=== PATIENT | female | born 1970 | race Caucasian/White ===

== ENCOUNTER 2017-04-03 14:08 | Emergency (ER) | payer MEDICAID, OTHER ==
[2017-04-03] MEDS: LORazepam 2 MG/ML VIAL (J2060) IV ×2 (14:45)
[2017-04-03] MEDS: MORPHINE 4 MG/ML 1ML VIAL (J2270) IV ×4 (14:46→16:46)
[2017-04-03] MEDS: LABETALOL HCL 100 MG/20 ML VIAL IV ×2 (16:12)
[2017-04-03] MEDS: NS 1,000 ML IV ×2 (16:15)
[2017-04-03 16:29] LABS: BASO % 0.4 % (0.0-1.0); EOS % 0.3 % (0.0-3.0); HEMATOCRIT 37.6 % (36.0-47.0); HEMOGLOBIN 12.9 g/dl (12.0-16.0); IMMATURE GRANULOCYTE % 0.2 % (0-3.0); LYMPH # 1.2 10^3/uL (1.5-4.5); LYMPH % 11.2 % (24.0-44.0); MEAN CORPUSCULAR HEMOGLOBIN 34.3 pg (27.0-33.0); MEAN CORPUSCULAR HGB CONC 34.3 g/dl (32.0-36.5); MONO # 0.6 10^3/uL (0.0-0.8); MONO % 5.5 % (0.0-5.0); NEUTROPHILS # 8.6 10^3/uL (1.8-7.7); NEUTROPHILS % 82.4 % (36.0-66.0); PLATELET COUNT, AUTOMATED 252 10^3/uL (150-450); RED BLOOD COUNT 3.76 10^6/uL (4.00-5.40); RED CELL DISTRIBUTION WIDTH 11.8 % (11.5-14.5); WHITE BLOOD COUNT 10.5 10^3/uL (4.0-10.0)
[2017-04-03 16:48] LABS: ANION GAP 7 MEQ/L (8-16); BLOOD UREA NITROGEN 9 MG/DL (7-18); CARBON DIOXIDE LEVEL 27 MEQ/L (21-32); CHLORIDE LEVEL 103 MEQ/L (98-107); CREATININE FOR GFR 0.66 MG/DL (0.55-1.30); GLOMERULAR FILTRATION RATE > 60.0 (>58); GLUCOSE, FASTING 119 MG/DL (70-100); POTASSIUM SERUM 3.3 MEQ/L (3.5-5.1); SODIUM LEVEL 137 MEQ/L (136-145)
== END 2017-04-03 18:12 | disposition short-term general hospital (02) ==
LOC: M ED 14:08
DX: S82.192A Other fracture of upper end of left tibia, initial encounter for closed fracture (principal); W10.9XXA Fall (on) (from) unspecified stairs and steps, initial encounter; Y92.099 Unspecified place in other non-institutional residence as the place of occurrence of the external cause; Y93.9 Activity, unspecified
CPT/HCPCS: J2270

== ENCOUNTER 2017-05-03 11:54 | Emergency (ER) | payer OTHER, MEDICAID ==
[2017-05-03] MEDS: NS 1,000 ML IV (12:45)
[2017-05-03 13:21] LABS: BASO # 0.1 10^3/uL (0.0-0.2); BASO % 1.2 % (0.0-1.0); EOS # 0.2 10^3/uL (0.0-0.50); EOS % 4.4 % (0.0-3.0); HEMATOCRIT 36.3 % (36.0-47.0); HEMOGLOBIN 11.9 g/dl (12.0-16.0); IMMATURE GRANULOCYTE % 0.5 % (0-3.0); LYMPH # 0.8 10^3/uL (1.5-4.5); LYMPH % 18.8 % (24.0-44.0); MEAN CORPUSCULAR HEMOGLOBIN 33.7 pg (27.0-33.0); MEAN CORPUSCULAR HGB CONC 32.8 g/dl (32.0-36.5); MEAN CORPUSCULAR VOLUME 102.8 fl (80.0-96.0); MONO # 0.4 10^3/uL (0.0-0.8); MONO % 8.9 % (0.0-5.0); NEUTROPHILS # 2.7 10^3/uL (1.8-7.7); NEUTROPHILS % 66.2 % (36.0-66.0); PLATELET COUNT, AUTOMATED 369 10^3/uL (150-450); RED BLOOD COUNT 3.53 10^6/uL (4.00-5.40); RED CELL DISTRIBUTION WIDTH 13.5 % (11.5-14.5); WHITE BLOOD COUNT 4.1 10^3/uL (4.0-10.0)
[2017-05-03 13:40] LABS: PARTIAL THROMBOPLASTIN TIME 31.4 SECONDS (26.8-37.9); PROTHROMBIN TIME 11.1 SECONDS (12.4-14.5)
[2017-05-03 13:41] LABS: AMMONIA 34 uMOL/L (<32)
[2017-05-03 13:42] LABS: ALBUMIN 3.9 GM/DL (3.2-5.2); ALBUMIN/GLOBULIN RATIO 1.11 (1.00-1.93); ALKALINE PHOSPHATASE 568 U/L (45-117); ALT/SGPT 252 U/L (12-78); AMYLASE 36 U/L (25-115); ANION GAP 10 MEQ/L (8-16); AST/SGOT 100 U/L (7-37); BILIRUBIN,DIRECT 3.3 MG/DL (0.0-0.2); BILIRUBIN,TOTAL 3.8 MG/DL (0.2-1.0); BLOOD UREA NITROGEN 5 MG/DL (7-18); CALCIUM LEVEL 9.4 MG/DL (8.5-10.1); CARBON DIOXIDE LEVEL 28 MEQ/L (21-32); CHLORIDE LEVEL 103 MEQ/L (98-107); CREATININE FOR GFR 0.57 MG/DL (0.55-1.30); GLOMERULAR FILTRATION RATE > 60.0 (>58); GLUCOSE, FASTING 102 MG/DL (70-100); LIPASE 125 U/L (73-393); POTASSIUM SERUM 3.8 MEQ/L (3.5-5.1); SODIUM LEVEL 141 MEQ/L (136-145); TOTAL PROTEIN 7.4 GM/DL (6.4-8.2)
[2017-05-03 13:46] LABS: LACTIC ACID SEPSIS PROTOCOL 1.9 MMOL/L (0.4-2.0)
[2017-05-03] MEDS ORDERED: ISOVUE-370 76% 100ML VIAL (Q9967) As Ordered (14:23)
[2017-05-05 11:46] LABS: HEPATITIS B SURFACE ANTIGEN NEGATIVE (NEGATIVE)
[2017-05-05 12:14] LABS: HEPATITIS B CORE ANTIBODY IGM NEGATIVE (NEGATIVE)
[2017-05-05 12:14] LABS: HEPATITIS C VIRUS ABY INDEX 0.1 INDEX (<0.8)
[2017-05-05 12:16] LABS: HEPATITIS A ANTIBODY IGM NEGATIVE (NEGATIVE)
== END 2017-05-03 15:28 | disposition home or self-care (01) ==
LOC: M ED 11:54
DX: R17 Unspecified jaundice (principal); R16.0 Hepatomegaly, not elsewhere classified; D64.9 Anemia, unspecified; I10 Essential (primary) hypertension; Z98.890 Other specified postprocedural states; L29.9 Pruritus, unspecified; Z79.899 Other long term (current) drug therapy
CPT/HCPCS: Q9967

== ENCOUNTER → 2017-05-06 | Outpatient (REF) | payer OTHER, SELFPAY ==
[2017-05-06 20:11] LABS: BASO # 0.1 10^3/uL (0.0-0.2); BASO % 1.4 % (0.0-1.0); EOS # 0.5 10^3/uL (0.0-0.50); EOS % 7.5 % (0.0-3.0); HEMATOCRIT 38.9 % (36.0-47.0); HEMOGLOBIN 12.2 g/dl (12.0-16.0); IMMATURE GRANULOCYTE % 0.3 % (0-3.0); LYMPH # 1.9 10^3/uL (1.5-4.5); LYMPH % 28.9 % (24.0-44.0); MEAN CORPUSCULAR HEMOGLOBIN 32.9 pg (27.0-33.0); MEAN CORPUSCULAR HGB CONC 31.4 g/dl (32.0-36.5); MEAN CORPUSCULAR VOLUME 104.9 fl (80.0-96.0); MONO # 0.6 10^3/uL (0.0-0.8); MONO % 9.2 % (0.0-5.0); NEUTROPHILS # 3.4 10^3/uL (1.8-7.7); NEUTROPHILS % 52.7 % (36.0-66.0); PLATELET COUNT, AUTOMATED 498 10^3/uL (150-450); RED BLOOD COUNT 3.71 10^6/uL (4.00-5.40); RED CELL DISTRIBUTION WIDTH 13.4 % (11.5-14.5); WHITE BLOOD COUNT 6.4 10^3/uL (4.0-10.0)
[2017-05-06 20:17] LABS: ALBUMIN 4.2 GM/DL (3.2-5.2); ALBUMIN/GLOBULIN RATIO 1.14 (1.00-1.93); ALKALINE PHOSPHATASE 452 U/L (45-117); ALT/SGPT 170 U/L (12-78); ANION GAP 6 MEQ/L (8-16); AST/SGOT 51 U/L (7-37); BILIRUBIN,TOTAL 1.6 MG/DL (0.2-1.0); BLOOD UREA NITROGEN 15 MG/DL (7-18); CALCIUM LEVEL 9.4 MG/DL (8.5-10.1); CARBON DIOXIDE LEVEL 31 MEQ/L (21-32); CHLORIDE LEVEL 101 MEQ/L (98-107); CREATININE FOR GFR 0.64 MG/DL (0.55-1.30); GLOMERULAR FILTRATION RATE > 60.0 (>58); GLUCOSE, FASTING 95 MG/DL (70-100); POTASSIUM SERUM 4.9 MEQ/L (3.5-5.1); SODIUM LEVEL 138 MEQ/L (136-145); TOTAL PROTEIN 7.9 GM/DL (6.4-8.2)
[2017-05-06 20:18] LABS: TOTAL 25(OH) VITAMIN D 34.2 NG/ML (30.0-100.0); VITAMIN B12 LEVEL 557 PG/ML
[2017-05-06 20:19] LABS: FOLATE 13.2 NG/ML
== END ==
LOC: M SFHCADAM 14:59
DX: R17 Unspecified jaundice (principal); R74.8 Abnormal levels of other serum enzymes; D75.89 Other specified diseases of blood and blood-forming organs; S82.192D Other fracture of upper end of left tibia, subsequent encounter for closed fracture with routine healing
CPT/HCPCS: 82746

== ENCOUNTER 2017-05-14 10:28 | Outpatient (RCR) | payer OTHER | END 2017-05-15 | LOC: M PT 10:28 | DX: Z51.89 Encounter for other specified aftercare (principal); S82.13 Fracture of medial condyle of tibia | CPT/HCPCS: 97161 ==

== ENCOUNTER 2017-05-25 10:31 | Outpatient (RCR) | payer OTHER | END 2017-06-14 | LOC: M PT 10:31 | DX: Z51.89 Encounter for other specified aftercare (principal); S82.13 Fracture of medial condyle of tibia; X58.XXXD Exposure to other specified factors, subsequent encounter; Y92.89 Other specified places as the place of occurrence of the external cause | CPT/HCPCS: 97010 ==

== ENCOUNTER 2018-03-15 11:00 | Outpatient (RCR) | payer OTHER ==
[~2018-03-15 11:00] MED LIST: AMLO2.5T3 PO; CALC1TAB9 PO; COLE1TA PO; CYCL10TA PO; ENOX30IN3; GABA-1171 PO; OXYC-517 PO; VITA-122 PO; VITA50005 PO; VITA500T PO; ZOFR4TAB14 PO
== END 2018-03-17 ==
LOC: M PT 11:00
PROVIDERS: ATTEND Student in an Organized Health Care Education/Training Program
DX: S72.402A Unspecified fracture of lower end of left femur, initial encounter for closed fracture (principal)

== ENCOUNTER 2018-04-13 12:30 | Outpatient (RCR) | payer OTHER | END 2018-04-14 | LOC: M PT 12:30 | PROVIDERS: ATTEND Student in an Organized Health Care Education/Training Program | DX: Z47.89 Encounter for other orthopedic aftercare (principal); S72.402A Unspecified fracture of lower end of left femur, initial encounter for closed fracture ==

== ENCOUNTER 2018-05-10 10:58 | Outpatient (RCR) | payer OTHER | END 2018-05-15 | LOC: M PT 10:58 | PROVIDERS: ATTEND Student in an Organized Health Care Education/Training Program | DX: S72.402D Unspecified fracture of lower end of left femur, subsequent encounter for closed fracture with routine healing (principal) ==

== ENCOUNTER 2018-05-30 11:45 | Outpatient (RCR) | payer OTHER | END 2018-06-14 | LOC: M PT 11:45 | PROVIDERS: ATTEND Orthopaedic Surgery Orthopaedic Trauma | DX: Z47.89 Encounter for other orthopedic aftercare (principal) ==

== ENCOUNTER 2018-06-21 08:47 | Outpatient (RCR) | payer OTHER | END 2018-07-15 | LOC: M PT 08:47 | PROVIDERS: ATTEND Student in an Organized Health Care Education/Training Program | DX: Z47.89 Encounter for other orthopedic aftercare (principal); S72.402D Unspecified fracture of lower end of left femur, subsequent encounter for closed fracture with routine healing; S82.142D Displaced bicondylar fracture of left tibia, subsequent encounter for closed fracture with routine healing; X58.XXXD Exposure to other specified factors, subsequent encounter ==